=== PATIENT | male | born 1950 | race Caucasian/White ===

== ENCOUNTER 2022-04-28 20:41 | Inpatient (IN) | payer MEDICARE, OTHER ==
[2022-04-28] MEDS ORDERED: Acetaminophen 500 MG Tab PO ONE (21:03)
[2022-04-28 21:32] LABS: PTT,PARTIAL THROMBOPLSTIN TIME 21.6 SEC (23.2-32.3)
[2022-04-28 21:45] LABS: RESPIRATORY SYNCYTIAL VIR NAA NEGATIVE (NEGATIVE)
[2022-04-28 21:46] LABS: CORONAVIRUS COVID-19 NAA POSITIVE (NEGATIVE)
[2022-04-28] MEDS ORDERED: Sodium Chloride 0.9% 10 ML Syringe FLUSH PRN (22:37)
[2022-04-28] MEDS ORDERED: Polyethylene Glycol 3350 Powder 17 GM Packet PO PRN (22:37)
[2022-04-28] MEDS ORDERED: Ondansetron 4 MG/2 ML SDV IV PRN (22:37)
[2022-04-28] MEDS ORDERED: Ibuprofen 200 MG Tab PO PRN (22:37)
[2022-04-28] MEDS ORDERED: Docusate Sodium 100 MG Cap PO PRN (22:37)
[2022-04-28] MEDS ORDERED: Albuterol 0.083% 2.5 MG/3 ML Neb Soln NEB PRN (22:37)
[2022-04-28] MEDS ORDERED: REMDESIVIR 200 MG in Sodium Chloride 0.9% 250 ML IV ONE (23:03)
[2022-04-28] MEDS ORDERED: Denosumab 60 MG/1 ML Syringe SUBCUT SCH (23:15)
[2022-04-29] MEDS: Pantoprazole 40 MG Tab.CR PO SCH (07:52)
[2022-04-29] MEDS: Nicotine 21 MG/24 Hr Patch TRDERM SCH (07:52)
[2022-04-29] MEDS: Losartan 100 MG Tab PO SCH (07:52)
[2022-04-29] MEDS: metFORMIN 500 MG Tab PO SCH ×2 (07:52→17:13)
[2022-04-29] MEDS: amLODIPine 10 MG Tab PO SCH (07:52)
[2022-04-29] MEDS: Simvastatin 20 MG Tab PO SCH (07:52)
[2022-04-29] MEDS: Carvedilol 12.5 MG Tab PO SCH ×2 (07:52→20:55)
[2022-04-29] MEDS: Acetaminophen 325 MG Tab PO PRN ×2 (07:54→15:29)
[2022-04-29] MEDS ORDERED: Ibuprofen 200 MG Tab PO ONE (17:12)
[2022-04-29] MEDS ORDERED: Insulin Glarg,Human.Rec.Analog 100 Unit/ML SUBCUT SCH (17:30)
[2022-04-29] MEDS ORDERED: REMDESIVIR 100 MG in Sodium Chloride 0.9% 100 ML IV SCH (20:00)
[2022-04-29] MEDS ORDERED: Enoxaparin 40 MG/0.4 ML Syringe SUBCUT SCH (20:00)
[2022-04-29] MEDS: Aspirin 81 MG Tab.EC PO SCH (21:32)
[2022-04-30] MEDS: Acetaminophen 325 MG Tab PO PRN (06:30)
[2022-04-30] MEDS: amLODIPine 10 MG Tab PO SCH (07:47)
[2022-04-30] MEDS: metFORMIN 500 MG Tab PO SCH (07:47)
[2022-04-30] MEDS: Losartan 100 MG Tab PO SCH (07:47)
[2022-04-30] MEDS: Aspirin 81 MG Tab.EC PO SCH (07:47)
[2022-04-30] MEDS: Pantoprazole 40 MG Tab.CR PO SCH (07:47)
[2022-04-30] MEDS: Carvedilol 12.5 MG Tab PO SCH (07:47)
[2022-04-30] MEDS: Simvastatin 20 MG Tab PO SCH (07:47)
[2022-04-30] MEDS: Nicotine 21 MG/24 Hr Patch TRDERM SCH (07:48)
[2022-04-30] MEDS ORDERED: REMDESIVIR 100 MG in Sodium Chloride 0.9% 100 ML IV SCH (16:00)
[2022-04-30 16:42] VITALS: BP 136/74; PULSE 65
== END 2022-04-30 17:15 | disposition home or self-care (01) | DRG 178 ==
LOC: CC.ED 20:41 → OBSVTOIN 22:16 → CC.MS 22:16 → INTOOBSV 22:16 → UNDOADMOB 22:16 → CC.MS 22:23 → OBSVTOIN 22:23
PROVIDERS: ADMIT Nurse Practitioner Family; ATTEND Nurse Practitioner Family
PROC: XW033E5 Introduction of Remdesivir Anti-infective into Peripheral Vein, Percutaneous Approach, New Technology Group 5 (ICD-10-PCS; principal; 2022-04-28)
DX: U07.1 COVID-19 (principal); Z68.41 Body mass index [BMI] 40.0-44.9, adult; I10 Essential (primary) hypertension; F17.200 Nicotine dependence, unspecified, uncomplicated; R09.02 Hypoxemia; I44.0 Atrioventricular block, first degree; R13.19 Other dysphagia; F17.210 Nicotine dependence, cigarettes, uncomplicated; D69.6 Thrombocytopenia, unspecified; Z79.899 Other long term (current) drug therapy; Z95.5 Presence of coronary angioplasty implant and graft; I25.10 Atherosclerotic heart disease of native coronary artery without angina pectoris; E11.9 Type 2 diabetes mellitus without complications; M54.2 Cervicalgia; E66.9 Obesity, unspecified; G89.29 Other chronic pain; E78.5 Hyperlipidemia, unspecified; Z79.4 Long term (current) use of insulin; Z79.84 Long term (current) use of oral hypoglycemic drugs; I25.2 Old myocardial infarction
CPT/HCPCS: 0241U; 36415; 71046; 80053; 82248; 84484; 85025; 85610; 85730; 93005; 93010; 99223; 99232; 99238; 99285; A9270-GY; J0248; J1815-GY; J7050

== ENCOUNTER 2022-07-16 14:51 | Emergency (ER) | payer MEDICARE, OTHER ==
[2022-07-16] MEDS ORDERED: Labetalol 100 MG/20 ML MDV IVPUSH ONE ×2 (15:48→17:07)
[2022-07-16 17:40] VITALS: BP 179/119; PULSE 68
== END 2022-07-16 17:20 ==
LOC: CC.ED 14:51
DX: H53.47 Heteronymous bilateral field defects (principal); I25.2 Old myocardial infarction; I10 Essential (primary) hypertension; Z79.82 Long term (current) use of aspirin; Z79.899 Other long term (current) drug therapy
CPT/HCPCS: 36415; 70450; 71046; 80053; 81003; 83735; 84484; 85025; 93005; 93010; 96374; 96376; 99284; 99285-25; J3490

== ENCOUNTER 2022-11-26 10:45 | Emergency (ER) | payer MEDICARE, OTHER ==
[2022-11-26 11:08] LABS: BASOPHILS ABSOLUTE AUTO 0.02 10^3/uL (0.00-0.50); BASOPHILS PERCENT AUTO 0.1 % (0-1); EOSINOPHILS ABSOLUTE AUTO 0.15 10^3/uL (0.00-1.50); EOSINOPHILS PERCENT AUTO 0.7 % (0-6); HEMATOCRIT 38.6 % (42.0-52.0); HEMOGLOBIN 12.7 g/dL (14.0-18.0); IMMATURE GRAN ABSOLUTE AUTO 0.34 10^3/uL (0.00-0.49); IMMATURE GRAN PERCENT AUTO 1.6 % (0.0-4.9); LYMPHOCYTES ABSOLUTE AUTO 2.24 10^3/uL (0.60-5.00); LYMPHOCYTES PERCENT AUTO 10.3 % (24-44); MEAN CORPUSCULAR HEMOGLOBIN 31.8 pg (27.0-32.0); MEAN CORPUSCULAR HGB CONC 32.9 g/dL (32.0-36.0); MEAN CORPUSCULAR VOLUME 96.5 fL (83.0-97.0); MONOCYTES ABSOLUTE AUTO 1.34 10^3/uL (0.00-1.50); MONOCYTES PERCENT AUTO 6.2 % (0-10); NEUTROPHILS ABSOLUTE AUTO 17.61 x10^3/uL (1.80-8.00); NEUTROPHILS PERCENT AUTO 81.1 % (41-71); PLATELET COUNT,PLT 214 10^3/uL (150-400)
[2022-11-26 11:13] LABS: WHITE BLOOD CELL COUNT,WBC 21.7 10^3/uL (4.0-11.0)
[2022-11-26 11:21] LABS: ALANINE AMINOTRANSFERASE,ALT 44 U/L (12-78); ALBUMIN 3.2 g/dL (3.4-5.0); ALKALINE PHOSPHATASE 75 U/L (46-116); ASPARTATE AMNIOTRANSFERASE,AST 17 U/L (15-37); BILIRUBIN TOTAL 0.4 mg/dL (0.0-1.0); BLOOD UREA NITROGEN,BUN 26 mg/dL (7-18); C-REACTIVE PROTEIN 0.11 mg/dL (<=0.30); CALCIUM 10.8 mg/dL (8.4-10.1); CARBON DIOXIDE,CO2 29 mmol/L (21-32); CHLORIDE,CL 104 mEq/L (98-106); CREATININE 1.3 mg/dL (0.7-1.3); POTASSIUM,K 5.3 mEq/L (3.5-5.0); PROTEIN TOTAL,TP 6.8 g/dL (6.4-8.2); SODIUM,NA 140 mEq/L (136-145)
[2022-11-26 11:23] LABS: APPEARANCE,URINE CLEAR (CLEAR); BILIRUBIN,URINE NEGATIVE (NEGATIVE); COLOR,URINE YELLOW (YELLOW); GLUCOSE,URINE 500 mg/dL (NEGATIVE); KETONES,URINE NEGATIVE (NEGATIVE); LEUKOCYTE ESTERASE,URINE NEGATIVE (NEGATIVE); NITRITE,URINE NEGATIVE (NEGATIVE); OCCULT BLOOD,URINE NEGATIVE (NEGATIVE); PROTEIN,URINE NEGATIVE (NEGATIVE); UROBILINOGEN,URINE 0.2 EU/dL (0.2-1.0)
[2022-11-26 11:24] LABS: ESTIMATED GFR 58 mL/min (>=60); GLUCOSE RANDOM 348 mg/dL (75-99)
[2022-11-26] MEDS ORDERED: Sodium Chloride 0.9% 1,000 ML IV ONE (11:48)
[2022-11-26] MEDS ORDERED: Insulin Regular, Human 100 Units/ML 3 ML Vial IV ONE (11:48)
[2022-11-26] MEDS ORDERED: 50% Dextrose in Water 50 ML Syringe IVPUSH PRN (11:48)
[2022-11-26] MEDS ORDERED: Glucagon,Human Recombinant 1 MG Vial IM PRN (11:48)
[2022-11-26 14:58] VITALS: BP 138/66; PULSE 84
== END 2022-11-26 13:45 | disposition home or self-care (01) ==
LOC: CC.ED 10:45
DX: E09.65 Drug or chemical induced diabetes mellitus with hyperglycemia (principal); T38.0X5A Adverse effect of glucocorticoids and synthetic analogues, initial encounter; D72.829 Elevated white blood cell count, unspecified; I10 Essential (primary) hypertension; I25.2 Old myocardial infarction; Z20.822 Contact with and (suspected) exposure to COVID-19; Z79.4 Long term (current) use of insulin; Z79.82 Long term (current) use of aspirin; Z79.84 Long term (current) use of oral hypoglycemic drugs; Z79.899 Other long term (current) drug therapy
CPT/HCPCS: 36415; 70450; 71046; 80053; 81003; 85025; 85730; 86140; 87804; 93005; 93010; 96360; 99284; 99285-25; J1815-GY; J7030; U0002